=== PATIENT | female | born 1930 | race Caucasian/White ===

== ENCOUNTER 2017-08-24 07:46 | Day surgery (SDC) | payer MEDICARE, OTHER ==
[~2017-08-24 07:46] MED LIST: Acetaminophen TAB* 325 MG PO ONE; Buffered Lidocaine 0.9% SYRIN* 5 ML/SYR SYRINGE INTRADERM ONE; Famotidine IV* 10 MG/ML 2 ML (20 mg) IV ONE; Sodium Citrate/Citric Acid* 15 ML UDC PO ONE
[2017-08-24] MEDS ORDERED: Buffered Lidocaine 0.9% SYRIN* 5 ML/SYR SYRINGE ONE (07:55)
[2017-08-24] MEDS ORDERED: ceFAZolin 2 GM PREMIX (*) 2 GM/50 ML BAG IVPB ONE (07:55)
[2017-08-24] MEDS ORDERED: Sodium Citrate/Citric Acid* 15 ML UDC ONE (07:55)
[2017-08-24] MEDS ORDERED: Famotidine IV* 10 MG/ML 2 ML (20 mg) ONE (07:55)
[2017-08-24] MEDS ORDERED: Acetaminophen TAB* 325 MG ONE ×2 (07:55→07:56)
[2017-08-24] MEDS ORDERED: Propofol* 500 MG/50 ML BTL ONE (08:24)
[2017-08-24] MEDS ORDERED: Lidocaine 2% PF * 5 ML VIAL ONE (08:24)
[2017-08-24] MEDS ORDERED: fentaNYL* 50 MCG/ML 2 ML VIAL (100 MCG VIAL) ONE (08:24)
[2017-08-24] MEDS ORDERED: Midazolam* 1 MG/ML 2 ML VIAL (2 MG) ONE (08:24)
[2017-08-24 09:00] LABS: Hematocrit 26 % (35-47); Hemoglobin 8.7 g/dl (12.0-16.0); Mean Corpuscular HGB Conc 34 g/dl (31-36); Mean Corpuscular Hemoglobin 29 pg (27-31); Mean Corpuscular Volume 85 fL (80-97); Mean Platelet Volume 6.9 um3 (7.4-10.4); Platelet Count 86 10^3/ul (150-450); Red Blood Count 3.04 10^6/ul (4.0-5.4); Red Cell Distribution Width 16 % (10.5-15); White Blood Count 2.7 10^3/ul (3.5-10.8)
[2017-08-24] MEDS ORDERED: PROCHLORPERAZINE INJ 5 MG/ML 2 ML VIAL IV PRN (09:04)
[2017-08-24] MEDS ORDERED: HYDROmorphone INJ* 1 MG/ML CARPUJECT SYRINGE IV PRN (09:04)
[2017-08-24] MEDS ORDERED: fentaNYL* 50 MCG/ML 2 ML VIAL (100 MCG VIAL) IV PRN (09:04)
[2017-08-24] MEDS ORDERED: Scopolamine 1.5 mg* PATCH TRANSDERM PRN (09:04)
[2017-08-24] MEDS ORDERED: oxyCODONE/Acetamin 5/325 MG* TAB PO PRN (09:04)
[2017-08-24] MEDS ORDERED: Ondansetron INJ* 2 MG/ML VIAL IV PRN (09:04)
[2017-08-24] MEDS ORDERED: Naloxone* 0.4 MG/ML 1 ML VIAL IV PRN (09:04)
[2017-08-24 09:11] LABS: EGFR Non-African American 39.3 (>60)
[2017-08-24] MEDS ORDERED: Lidocaine 1% INJ* 10 MG/ML 30 ML SDV ONE (09:13)
[2017-08-24] MEDS ORDERED: EPHEDrine (Pressors)* 50 MG/ML VIAL ONE (09:54)
[2017-08-24] MEDS ORDERED: Levalbuterol 0.63MG/3ML NEB* UNIT OF USE INH ONE ×2 (10:51→10:52)
--- NOTE | 2017-08-24 11:08 | RAD ---
Indication: RIGHT chest PowerPort placement. LEFT lung carcinoma. Comparison: July 26, 2017 PET/CT. Technique: Upright AP 1026 hours Report: Tip of RIGHT chest port is at the level of the superior vena cava. Negative for pneumothorax. Large partially loculated LEFT pleural effusion with near complete compressive atelectasis on the LEFT lung with interval worsening. Negative for mediastinal shift. Upper normal heart size. Unremarkable nonobscured central pulmonary vasculature. IMPRESSION: 1. Negative for pneumothorax post RIGHT chest port placement. 2. Large partially loculated LEFT pleural effusion with near complete compressive atelectasis on the LEFT lung with interval worsening.
[2017-08-24 11:54] VITALS: BP 104/51
--- NOTE | 2017-08-24 12:10 | RAD ---
INDICATION: LEFT lung carcinoma. RIGHT portal placement. COMPARISON: No relevant prior exams available on the [facility] [place] PACS. TECHNIQUE: 5.7 seconds fluoroscopy. FINDINGS: Spot image documents the tip of the RIGHT chest port at level of the RIGHT atrium. IMPRESSION: Procedural fluoroscopy. CPT II Codes: 6045F
--- NOTE | 2017-08-25 00:09 | OP ---
CC: Dr. Macedo; Dr. Soto * DATE OF OPERATION: 08/24/17 - [facility] DATE OF : 34 SURGEON: Jose Cummings MD. COMMAND POST SUPERINTENDENT: DAVID Morgan. ANESTHESIOLOGIST: Dr. Hopper. ANESTHESIA: LMAC. PREOPERATIVE DIAGNOSIS: Carcinoma of the lung. POSTOPERATIVE DIAGNOSIS: Carcinoma of the lung. OPERATIVE PROCEDURE: Placement of right subclavian 8-[place] PowerPort. DESCRIPTION OF PROCEDURE: The patient was supine on the operative table. After adequate intravenous sedation, compression stockings, Alex Hugger warmer, and intravenous antibiotics, the right chest and neck region were prepped with antiseptic, draped in a sterile fashion. Local infiltrative anesthesia was carried out and approximately 3-cm incision was created in the right subclavian region. An inferior pocket was created. Subclavian venipuncture was carried out. Guidewire was passed under fluoroscopic guidance. Catheter passed through the peel-away introducer, measured and cut at 23 cm. It is attached to the port which was sutured in the pocket with 2-0 Prolene. Pocket was closed with 3-0 and 5-0 Vicryl followed by Steri-Strips. The port has good blood return, was flushed with saline solution and heparinized solution. She was awakened, and brought to Recovery in good condition. There were no complications. No drains. No pathologic specimens. Sponge and instrument counts were correct. Estimated blood loss 10 mL. [id number]/CPS #: [id number] MTDD
[2017-08-27] MEDS ORDERED: Scopolamine PATCH Remove* 1 NOTE MISC PATCH OFF ONE (09:04)
== END 2017-08-24 12:03 | disposition home or self-care (01) ==
LOC: OR 07:46
PROVIDERS: ATTEND Surgery
DX: C34.92 Malignant neoplasm of unspecified part of left bronchus or lung (principal); E78.5 Hyperlipidemia, unspecified; I10 Essential (primary) hypertension; J90 Pleural effusion, not elsewhere classified; J98.11 Atelectasis; Z87.891 Personal history of nicotine dependence
CPT/HCPCS: 36415; 71045; 76000; 80048; 85027; 86850; 86900; 86901; 86922; A9270-GY; C1876; J0690; J1642; J2250; J2704; J3010; J7614; P9040